=== PATIENT | female | born 1985 | race Caucasian/White ===

== ENCOUNTER 2017-04-29 22:17 | Emergency (ER) | payer MEDICAID ==
[~2017-04-29] VITALS: Ht 152.4 cm; Wt 64.0 kg
[2017-04-29 22:30] VITALS: BP 135/94; Ht 152.4 cm; Wt 64.0 kg
== END 2017-04-30 00:20 | disposition home or self-care (01) ==
LOC: ED 22:17
DX: O26.892 Other specified pregnancy related conditions, second trimester (principal); H66.91 Otitis media, unspecified, right ear; Z3A.23 23 weeks gestation of pregnancy